=== PATIENT | female | born 1995 | race Caucasian/White ===

== ENCOUNTER 2017-01-16 01:52 | Emergency (ER) | payer OTHER ==
--- NOTE | 2017-01-16 01:56 | EDPHY ---
H & P Time Seen by Provider: 01/16/17 01:55 HPI/ROS: Chief Complaint: Alcohol intoxication, vomiting HPI: 78-zlks-bum-year-old female who was found outside at [address] [place] [address] intoxicated. Patient passed out after vomiting. Is unable to ambulate on their own. Patient brought in by EMS for further evaluation. No obvious signs of trauma per EMS. Remainder of history is unobtainable secondary to the patient's intoxication. ROS: Unobtainable secondary to the patient's intoxication PMH: Unknown Medications: Unknown Allergies: Unknown Social History: Positive for alcohol Family History: non-contributory Physical Exam: Gen: Somnolent, responds to painful stimuli, maintaining airway, smells of alcohol and emesis HEENT: Atraumatic Nose: no epistaxis or deformity Eyes: PERRLA, EOMI Mouth: Moist mucosa Neck: Supple, no step-offs or deformity Chest: Atraumatic, lungs clear to auscultation Heart: S1, S2 normal, no murmur Abd: Soft, non-tender, no guarding Back: Atraumatic Ext: no edema, atraumatic Skin: no rash Neuro: Sensation grossly intact, Strength 5/5 in bilateral upper and lower extremities Constitutional: Initial Vital Signs Temperature (C) 36.4 C 01/16/17 01:56 Heart Rate 76 01/16/17 01:56 Respiratory Rate 18 01/16/17 01:56 Blood Pressure 121/67 H 01/16/17 01:56 O2 Sat (%) 95 01/16/17 01:56 O2 Delivery Mode Room Air Allergies/Adverse Reactions: Unable to Assess Allergy (Unverified 01/16/17 01:56) Home Medications: Medication Instructions Recorded Unobtainable 01/16/17 Medical Decision Making ED Course/Re-evaluation: Patient is now awake and appropriate. Ambulating unassisted to the bathroom. No current complaints. Medically cleared for discharge. Departure - Departure Disposition: Home, Routine, Self-Care Clinical Impression: Alcoholic intoxication Condition: Good Instructions: Alcohol Intoxication (ED) Additional Instructions: Please try to avoid binge drinking alcohol. Referrals: Patient,NotPresent [Primary Care Provider] - As per Instructions
[2017-01-16 05:12] VITALS: BP 120/76; PULSE 66; RESP 16; TEMP 97.9; O2SAT 96
== END 2017-01-16 05:12 | disposition home or self-care (01) ==
DX: F10.129 Alcohol abuse with intoxication, unspecified (principal)